=== PATIENT | female | born 1975 | race Caucasian/White ===

== ENCOUNTER 2017-04-09 19:53 | Emergency (ER) | payer MEDICAID ==
[2017-04-09] MEDS ORDERED: Sodium Chloride 0.9% 1,000 ML IV ONE (20:11)
[2017-04-09] MEDS ORDERED: LORazepam 2 MG/ML MDV IVPUSH ONE (20:11)
[2017-04-09] MEDS ORDERED: Ondansetron 4 MG/2 ML SDV IVPUSH ONE (20:11)
[2017-04-09] MEDS ORDERED: Ketorolac 30 MG/ML SDV IVPUSH ONE (20:11)
--- NOTE | 2017-04-09 21:06 | EDM.PDOC ---
ED HPI GENERAL MEDICAL PROBLEM - General Chief Complaint: Headache Stated Complaint: HEADACHE Time Seen by Provider: 04/09/17 20:45 Source of Information: Reports: Patient History Limitations: Reports: No Limitations - History of Present Illness INITIAL COMMENTS - FREE TEXT/NARRATIVE: History of present illness: [41 year-old female presenting with complaints of migraine headache. Patient indicates she has a history of migraines and she had taken her magnesium sulfate medication but that if it failed to prevent the migraine from escalating. Patient indicates she has had worse migraines but this is significant enough that she felt she should come in for further treatment] Review of systems: As per history of present illness and below otherwise all systems reviewed and negative. Past medical history: As per history of present illness and as reviewed below otherwise noncontributory. Surgical history: As per history of present illness and as reviewed below otherwise noncontributory. Social history: No reported history of drug or alcohol abuse. Family history: As per history of present illness and as reviewed below otherwise noncontributory. Physical exam: HEENT: Atraumatic, normocephalic, pupils reactive, negative for conjunctival pallor or scleral icterus, mucous membranes moist, throat clear, neck supple, nontender, trachea midline. Lungs: Clear to auscultation, breath sounds equal bilaterally, chest nontender. Heart: S1S2, regular, negative for clicks, rubs, or JVD. Abdomen: Soft, nondistended, nontender. Negative for masses or hepatosplenomegaly. Negative for costovertebral tenderness. Pelvis: Stable nontender. Genitourinary: Deferred. Rectal: Deferred. Extremities: Atraumatic, negative for cords or calf pain. Neurovascular unremarkable. Neuro: Awake, alert, oriented. Cranial nerves II through XII unremarkable. Cerebellum unremarkable. Motor and sensory unremarkable throughout. Exam nonfocal. Close this but is benign save subjective complaint is that in history of present illness. Diagnostics: [] Therapeutics: [IV fluid, lorazepam, Zofran] Impression: [Migraine] Plan: [Take migraine medication followup with PCP] Definitive disposition and diagnosis as appropriate pending reevaluation and review of above. 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: Neurological History: Reports: Migraines Endocrine/Metabolic History: Reports: Hypothyroidism Oncologic (Cancer) History: Reports: Leukemia - Past Surgical History HEENT Surgical History: Reports: Adenoidectomy, Tonsillectomy GI Surgical History: Reports: Appendectomy Social & Family History - Family History Family Medical History: Noncontributory - Tobacco Use Smoking Status *Q: Never Smoker - Recreational Drug Use Recreational Drug Use: No ED ROS GENERAL - Review of Systems Review Of Systems: See Below (History of present illness) - Physical Exam Exam: See Below (See history of present illness) Course - Vital Signs Last Recorded V/S: Last Vital Signs Temp 36.6 C 04/09/17 20:12 Pulse 92 04/09/17 20:12 Resp 16 04/09/17 20:12 BP 110/82 04/09/17 20:12 Pulse Ox 100 04/09/17 20:12 - Orders/Labs/Meds Labs: Laboratory Tests 04/09/17 04/09/17 Range/Units 20:30 20:30 Urine Color DARK YELLOW Urine Appearance CLEAR Urine pH 5.5 (5.0-8.0) Ur Specific [place] 1.025 (1.001-1.035) Urine Protein NEGATIVE (NEGATIVE) mg/dL Urine Glucose (UA) NEGATIVE (NEGATIVE) mg/dL Urine Ketones NEGATIVE (NEGATIVE) mg/dL Urine Occult Blood NEGATIVE (NEGATIVE) Urine Nitrite POSITIVE H (NEGATIVE) Urine Bilirubin MODERATE H (NEGATIVE) Urine Ictotest NEGATIVE Urine Urobilinogen 1.0 (<2.0) EU/dL Ur Leukocyte Esterase NEGATIVE (NEGATIVE) Urine RBC 0-2 (0-2/HPF) Urine WBC 2-4 (0-5/HPF) Ur Epithelial Cells MANY (NONE-FEW) Urine Bacteria 1+ H (NEGATIVE) Urine Mucus MODERATE (NONE-MOD) Urine HCG, Qual NEGATIVE (NEGATIVE) Meds: Medications Discontinued Medications Generic Name Dose Route Start Last Admin Trade Name Tatyana PRN Reason Stop Dose Admin Diphenhydramine HCl 50 mg 04/09/17 21:08 04/09/17 21:18 Benadryl IVPUSH 04/09/17 21:09 50 mg ONETIME ONE Administration Sodium Chloride 1,000 mls @ 999 mls/hr 04/09/17 20:11 04/09/17 20:48 Normal Saline IV 04/09/17 21:11 999 mls/hr STAT ONE Administration Ketorolac Tromethamine 30 mg 04/09/17 20:11 04/09/17 20:56 Toradol IVPUSH 04/09/17 20:12 Not Given ONETIME ONE Lorazepam 1 mg 04/09/17 20:11 04/09/17 20:51 Ativan IVPUSH 04/09/17 20:12 1 mg ONETIME ONE Administration Metoclopramide HCl 10 mg 04/09/17 21:08 04/09/17 21:20 Reglan IV 04/09/17 21:09 10 mg ONETIME ONE Administration Morphine Sulfate 2 mg 04/09/17 22:16 04/09/17 22:21 Morphine IVPUSH 04/09/17 22:17 2 mg ONETIME ONE Administration Ondansetron HCl 8 mg 04/09/17 20:11 04/09/17 20:49 Zofran IVPUSH 04/09/17 20:12 8 mg ONETIME ONE Administration Departure - Departure Time of Disposition: 22:46 Disposition: Home, Self-Care 01 Condition: good Clinical Impression: Migraine - Discharge Information Instructions: Recurrent Migraine Headache, [id number] Forms: ED Department Discharge Additional Instructions: The following information is given to patients seen in the emergency department who are being discharged to home. This information is to outline your options for follow-up care. We provide all patients seen in our emergency department with a follow-up referral. The need for follow-up, as well as the timing and circumstances, are variable depending upon the specifics of your emergency department visit. If you don't have a primary care physician on staff, we will provide you with a referral. We always advise you to contact your personal physician following an emergency department visit to inform them of the circumstance of the visit and for follow-up with them and/or the need for any referrals to a consulting specialist. The emergency department will also refer you to a specialist when appropriate. This referral assures that you have the opportunity for follow-up care with a specialist. All of these measure are taken in an effort to provide you with optimal care, which includes your follow-up. Under all circumstances we always encourage you to contact your private physician who remains a resource for coordinating your care. When calling for follow-up care, please make the office aware that this follow-up is from your recent emergency room visit. If for any reason you are refused follow-up, please contact the [facility] Emergency Department at and asked to speak to the emergency department charge nurse. Take medication as directed Follow up with PCP 1-2 days Return to ED as needed as discussed
[2017-04-09] MEDS ORDERED: diphenhydrAMINE 50 MG/ML SDV IVPUSH ONE (21:08)
[2017-04-09] MEDS ORDERED: Metoclopramide 10 MG/2 ML SDV IV ONE (21:08)
[2017-04-09] MEDS ORDERED: Morphine 2 MG/ML Syringe IVPUSH ONE (22:16)
[2017-04-09 23:12] VITALS: BP 105/68
== END 2017-04-09 23:05 | disposition home or self-care (01) ==
LOC: MW.ED 19:53
DX: G43.909 Migraine, unspecified, not intractable, without status migrainosus (principal); E03.9 Hypothyroidism, unspecified; Z88.8 Allergy status to other drugs, medicaments and biological substances; Z79.899 Other long term (current) drug therapy; Z98.890 Other specified postprocedural states; Z85.6 Personal history of leukemia
CPT/HCPCS: 81001; 81025; 96361; 96374; 96375; 99283; J1200; J2060; J2270; J2405; J2765; J7040

== ENCOUNTER 2017-06-15 09:38 | Emergency (ER) | payer MEDICAID ==
[2017-06-15] MEDS ORDERED: Sodium Chloride 0.9% 1,000 ML IV ONE (10:34)
[2017-06-15] MEDS ORDERED: Ondansetron 4 MG/2 ML SDV IVPUSH ONE (10:34)
--- NOTE | 2017-06-15 13:34 | CT ---
CT of the abdomen and pelvis without contrast. HISTORY: Pain TECHNIQUE: Axial CT images were obtained of the abdomen and pelvis without contrast. Coronal and sag ittal reconstructions obtained. FINDINGS: The lung bases are clear, no pleural effusion. Focal fatty infiltration noted near the falciform ligament. The spleen, adrenal glands, and pancreas appear unremarkable for noncontrast examination. The gallbladder appears normal. There is no bulky retroperitoneal lymphadenopathy. No abdominal ascites. Punctate nonobstructing stone within the lower pole of the right kidney. The large and small bowel are normal in caliber without evidence of obstruction. Appendectomy. Mild diverticulosis without evidence of diverticulitis. There is no bulky pelvic lymphadenopathy. No free fluid. No free air. The urinary bladder appears normal. The visualized osseous structures appear normal. IMPRESSION: 1. No acute findings within the abdomen or pelvis. 2. Mild diverticulosis without evidence of diverticulitis. 3. Punctate nonobstructing stone within the lower pole of the right kidney.
--- NOTE | 2017-06-15 13:40 | EDM.PDOC ---
ED HPI GENERAL MEDICAL PROBLEM - General Chief Complaint: Abdominal Pain Stated Complaint: ABD PAIN Time Seen by Provider: 06/15/17 12:00 Source of Information: Reports: Patient History Limitations: Reports: No Limitations - History of Present Illness INITIAL COMMENTS - FREE TEXT/NARRATIVE: History of present illness: [31-year-old female comes in complaining of diffuse abdominal pain that has gotten significantly worse. Patient also admits that she has a significant amount of stress at this time.] Review of systems: As per history of present illness and below otherwise all systems reviewed and negative. Past medical history: As per history of present illness and as reviewed below otherwise noncontributory. Surgical history: As per history of present illness and as reviewed below otherwise noncontributory. Social history: No reported history of drug or alcohol abuse. Family history: As per history of present illness and as reviewed below otherwise noncontributory. Physical exam: HEENT: Atraumatic, normocephalic, pupils reactive, negative for conjunctival pallor or scleral icterus, mucous membranes moist, throat clear, neck supple, nontender, trachea midline. Lungs: Clear to auscultation, breath sounds equal bilaterally, chest nontender. Heart: S1S2, regular, negative for clicks, rubs, or JVD. Abdomen: Soft, nondistended diffuse nonspecific tenderness. Negative for masses or hepatosplenomegaly. Negative for costovertebral tenderness. Pelvis: Stable nontender. Genitourinary: Deferred. Rectal: Deferred. Extremities: Atraumatic, negative for cords or calf pain. Neurovascular unremarkable. Neuro: Awake, alert, oriented. Cranial nerves II through XII unremarkable. Cerebellum unremarkable. Motor and sensory unremarkable throughout. Exam nonfocal. Diagnostics: [CT BC, CMP, CT of abdomen] Therapeutics: [IV fluids] Impression: [Abdominal pain] Plan: [Follow-up with PCP] Definitive disposition and diagnosis as appropriate pending reevaluation and review of above. 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: , Other (See Below) Other OB/BYN History: complete hysterectomy Neurological History: Reports: Migraines Endocrine/Metabolic History: Reports: Hypothyroidism Oncologic (Cancer) History: Reports: Leukemia - Past Surgical History HEENT Surgical History: Reports: Adenoidectomy, Tonsillectomy GI Surgical History: Reports: Appendectomy Social & Family History - Family History Family Medical History: Noncontributory - Tobacco Use Smoking Status *Q: Never Smoker - Caffeine Use Caffeine Use: Reports: None - Recreational Drug Use Recreational Drug Use: No ED ROS GENERAL - Review of Systems Review Of Systems: See Below (History of present illness) ED EXAM, GI/ABD - Physical Exam Exam: See Below (See history of present illness) Course - Vital Signs Last Recorded V/S: Last Vital Signs Temp 36.6 C 06/15/17 09:48 Pulse 78 06/15/17 09:48 Resp 18 06/15/17 09:48 BP 109/77 06/15/17 09:48 Pulse Ox 100 06/15/17 09:48 - Orders/Labs/Meds Labs: Laboratory Tests 06/15/17 06/15/17 06/15/17 Range/Units 10:45 10:45 10:58 WBC 5.54 (4.0-11.0) K/uL RBC 4.95 (4.30-5.90) M/uL Hgb 15.0 (12.0-16.0) g/dL Hct 42.6 (36.0-46.0) % MCV 86.1 (80.0-98.0) fL MCH 30.3 (27.0-32.0) pg MCHC 35.2 (31.0-37.0) g/dL RDW Std Deviation 36.7 (28.0-62.0) fl RDW Coeff of Primo 12 (11.0-15.0) % Plt Count 254 (150-400) K/uL MPV 9.60 (7.40-12.00) fL Neut % (Auto) 59.6 (48.0-80.0) % Lymph % (Auto) 24.2 (16.0-40.0) % [place] % (Auto) 12.3 (0.0-15.0) % Eos % (Auto) 3.2 (0.0-7.0) % Baso % (Auto) 0.7 (0.0-1.5) % Neut # (Auto) 3.3 (1.4-5.7) K/uL Lymph # (Auto) 1.3 (0.6-2.4) K/uL [place] # (Auto) 0.7 (0.0-0.8) K/uL Eos # (Auto) 0.2 (0.0-0.7) K/uL Baso # (Auto) 0.0 (0.0-0.1) K/uL Nucleated RBC % 0.0 /100WBC Nucleated RBCs # 0 K/uL Sodium 138 (136-146) mmol/L Potassium 3.6 (3.5-5.1) mmol/L Chloride 103 (98-110) mmol/L Carbon Dioxide 23 (21-31) mmol/L BUN 21 (6.0-23.0) mg/dL Creatinine 2.0 H (0.6-1.5) mg/dL Est Cr Clr Drug Dosing 39.08 mL/min Estimated GFR (MDRD) 27.6 ml/min Glucose 72 (60-110) mg/dL Calcium 9.6 (8.8-10.8) mg/dL Total Bilirubin 0.4 (0.1-1.5) mg/dL AST 13 (5-40) IU/L ALT 17 (8-54) IU/L Alkaline Phosphatase 91 (40-150) Total Protein 7.8 (6.0-8.0) g/dL Albumin 4.8 (3.5-5.0) g/dL Globulin 3.0 (2.0-3.5) g/dL Albumin/Globulin Ratio 1.6 (1.3-2.8) Amylase 75 (10-90) U/L Lipase 30 (7-80) U/L Urine Color YELLOW Urine Appearance CLEAR Urine pH 5.5 (5.0-8.0) Ur Specific [place] 1.020 (1.001-1.035) Urine Protein NEGATIVE (NEGATIVE) mg/dL Urine Glucose (UA) NEGATIVE (NEGATIVE) mg/dL Urine Ketones NEGATIVE (NEGATIVE) mg/dL Urine Occult Blood NEGATIVE (NEGATIVE) Urine Nitrite NEGATIVE (NEGATIVE) Urine Bilirubin NEGATIVE (NEGATIVE) Urine Urobilinogen 0.2 (<2.0) EU/dL Ur Leukocyte Esterase NEGATIVE (NEGATIVE) Urine RBC 0-1 (0-2/HPF) Urine WBC 0-2 (0-5/HPF) Ur Epithelial Cells FEW (NONE-FEW) Urine Bacteria RARE (NEGATIVE) Meds: Medications Discontinued Medications Generic Name Dose Route Start Last Admin Trade Name Donavanq PRN Reason Stop Dose Admin Sodium Chloride 1,000 mls @ 999 mls/hr 06/15/17 10:34 06/15/17 10:52 Normal Saline IV 06/15/17 11:34 999 mls/hr STAT ONE Administration Ondansetron HCl 8 mg 06/15/17 10:34 06/15/17 10:53 Zofran IVPUSH 06/15/17 10:35 8 mg ONETIME ONE Administration Departure - Departure Time of Disposition: 13:39 Disposition: Home, Self-Care 01 Condition: Good Clinical Impression: Abdominal pain - Discharge Information Instructions: Abdominal Pain, Adult, [id number] Forms: ED Department Discharge Additional Instructions: The following information is given to patients seen in the emergency department who are being discharged to home. This information is to outline your options for follow-up care. We provide all patients seen in our emergency department with a follow-up referral. The need for follow-up, as well as the timing and circumstances, are variable depending upon the specifics of your emergency department visit. If you don't have a primary care physician on staff, we will provide you with a referral. We always advise you to contact your personal physician following an emergency department visit to inform them of the circumstance of the visit and for follow-up with them and/or the need for any referrals to a consulting specialist. The emergency department will also refer you to a specialist when appropriate. This referral assures that you have the opportunity for follow-up care with a specialist. All of these measure are taken in an effort to provide you with optimal care, which includes your follow-up. Under all circumstances we always encourage you to contact your private physician who remains a resource for coordinating your care. When calling for follow-up care, please make the office aware that this follow-up is from your recent emergency room visit. If for any reason you are refused follow-up, please contact the [facility] Emergency Department at and asked to speak to the emergency department charge nurse. Your findings today were nonspecific and showed no acute changes or concerns It would benefit you to follow-up with the primary care provider specifically in the next few days Return to ED as needed as discussed [facility] Primary Care [address] [place] [id number]
[2017-06-15] MEDS ORDERED: Ranitidine 15 MG/ML Syrup 10 ML UD Cup PO ONE (13:54)
[2017-06-15 14:12] VITALS: BP 111/79
== END 2017-06-15 14:12 | disposition home or self-care (01) ==
LOC: MW.ED 09:38
DX: R10.9 Unspecified abdominal pain (principal); E03.9 Hypothyroidism, unspecified; Z88.6 Allergy status to analgesic agent; Z79.899 Other long term (current) drug therapy; Z90.710 Acquired absence of both cervix and uterus; Z98.890 Other specified postprocedural states; Z90.49 Acquired absence of other specified parts of digestive tract
CPT/HCPCS: 36415; 74176; 80053; 81001; 82150; 83690; 85025; 96361; 96374; 99284; A9270; J2405; J7040; 99283

== ENCOUNTER 2017-11-14 14:58 | Emergency (ER) | payer MEDICAID ==
[2017-11-14 15:41] VITALS: BP 123/76
--- NOTE | 2017-11-14 16:06 | EDM.PDOC ---
ED HPI GENERAL MEDICAL PROBLEM - General Chief Complaint: Genitourinary Problem Stated Complaint: POSSIBLE BLADDER INFECTION Time Seen by Provider: 11/14/17 15:40 Source of Information: Reports: Patient History Limitations: Reports: No Limitations - History of Present Illness INITIAL COMMENTS - FREE TEXT/NARRATIVE: History of present illness: [42-year-old female comes in complaining of burning urgency frequency. Also indicates that her boyfriend has just now indicated that he has sores on his penis. Patient is concerned for possible STI/STD.] Review of systems: As per history of present illness and below otherwise all systems reviewed and negative. Past medical history: As per history of present illness and as reviewed below otherwise noncontributory. Surgical history: As per history of present illness and as reviewed below otherwise noncontributory. Social history: No reported history of drug or alcohol abuse. Family history: As per history of present illness and as reviewed below otherwise noncontributory. Physical exam: HEENT: Atraumatic, normocephalic, pupils reactive, negative for conjunctival pallor or scleral icterus, mucous membranes moist, throat clear, neck supple, nontender, trachea midline. Lungs: Clear to auscultation, breath sounds equal bilaterally, chest nontender. Heart: S1S2, regular, negative for clicks, rubs, or JVD. Abdomen: Soft, nondistended, nontender. Negative for masses or hepatosplenomegaly. Negative for costovertebral tenderness. Pelvis: Stable nontender. Genitourinary: Deferred. Rectal: Deferred. Extremities: Atraumatic, negative for cords or calf pain. Neurovascular unremarkable. Neuro: Awake, alert, oriented. Cranial nerves II through XII unremarkable. Cerebellum unremarkable. Motor and sensory unremarkable throughout. Exam nonfocal. Global assessment is benign save the subjective complaint as noted in history of present illness Diagnostics: [UA, GC] Therapeutics: [] Impression: [STI exposure] Plan: [Rocephin, azithromycin empirically] Definitive disposition and diagnosis as appropriate pending reevaluation and review of above. 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 , Other (See Below) Other OB/BYN History: complete hysterectomy Neurological History: Reports: Migraines Endocrine/Metabolic History: Reports: Hypothyroidism Oncologic (Cancer) History: Reports: Leukemia - Past Surgical History HEENT Surgical History: Reports: Adenoidectomy, Tonsillectomy GI Surgical History: Reports: Appendectomy Female Surgical History: Reports: Hysterectomy Social & Family History - Family History Family Medical History: Noncontributory - Tobacco Use Smoking Status *Q: Never Smoker - Caffeine Use Caffeine Use: Reports: None - Recreational Drug Use Recreational Drug Use: No ED ROS GENERAL - Review of Systems Review Of Systems: See Below (See history of present illness) ED EXAM, GENERAL - Physical Exam Exam: See Below (History of present illness) Course - Vital Signs Last Recorded V/S: Last Vital Signs Temp 36.2 C 11/14/17 15:38 Pulse 73 11/14/17 15:38 Resp 18 11/14/17 15:38 BP 123/76 11/14/17 15:38 Pulse Ox 97 11/14/17 15:38 - Orders/Labs/Meds Orders: Active Orders 24 hr Category Date Time Status CHLAMYDIA AND GONORRHEA BY [facility] Stat Lab 11/14/17 15:40 Received CULTURE URINE [RM] Stat Lab 11/14/17 15:40 Received Labs: Laboratory Tests 11/14/17 Range/Units 15:40 Urine Color YELLOW Urine Appearance CLEAR Urine pH 7.0 (5.0-8.0) Ur Specific [place] 1.020 (1.001-1.035) Urine Protein NEGATIVE (NEGATIVE) mg/dL Urine Glucose (UA) NEGATIVE (NEGATIVE) mg/dL Urine Ketones NEGATIVE (NEGATIVE) mg/dL Urine Occult Blood NEGATIVE (NEGATIVE) Urine Nitrite NEGATIVE (NEGATIVE) Urine Bilirubin NEGATIVE (NEGATIVE) Urine Urobilinogen 0.2 (<2.0) EU/dL Ur Leukocyte Esterase NEGATIVE (NEGATIVE) Urine RBC 0-1 (0-2/HPF) Urine WBC 0-1 (0-5/HPF) Ur Epithelial Cells FEW (NONE-FEW) Urine Bacteria RARE (NEGATIVE) Meds: Medications Discontinued Medications Generic Name Dose Route Start Last Admin Trade Name Tatyana PRN Reason Stop Dose Admin Azithromycin 1,000 mg 11/14/17 16:42 11/14/17 16:55 Zithromax PO 11/14/17 16:43 1,000 mg Q24H ONE Administration Ceftriaxone Sodium 2,000 mg/ 0 mg 11/14/17 16:42 11/14/17 16:55 Lidocaine HCl 2.1 ml IM 11/14/17 16:43 1 gm ONETIME ONE Administration Departure - Departure Time of Disposition: 17:07 Disposition: Home, Self-Care 01 Condition: Good Clinical Impression: Sexually transmitted disease exposure - Discharge Information Referrals: PCP,None [Primary Care Provider] - Forms: ED Department Discharge Additional Instructions: The following information is given to patients seen in the emergency department who are being discharged to home. This information is to outline your options for follow-up care. We provide all patients seen in our emergency department with a follow-up referral. The need for follow-up, as well as the timing and circumstances, are variable depending upon the specifics of your emergency department visit. If you don't have a primary care physician on staff, we will provide you with a referral. We always advise you to contact your personal physician following an emergency department visit to inform them of the circumstance of the visit and for follow-up with them and/or the need for any referrals to a consulting specialist. The emergency department will also refer you to a specialist when appropriate. This referral assures that you have the opportunity for follow-up care with a specialist. All of these measure are taken in an effort to provide you with optimal care, which includes your follow-up. Under all circumstances we always encourage you to contact your private physician who remains a resource for coordinating your care. When calling for follow-up care, please make the office aware that this follow-up is from your recent emergency room visit. If for any reason you are refused follow-up, please contact the [facility] Emergency Department at and asked to speak to the emergency department charge nurse. You've been treated for a STI's as discussed Follow-up with women's health as soon as able Return to ED as needed as discussed - My Orders Last 24 Hours: My Active Orders 11/14/17 15:40 CHLAMYDIA AND GONORRHEA BY [facility] Stat - Assessment/Plan Last 24 Hours: My Active Orders 11/14/17 15:40 CHLAMYDIA AND GONORRHEA BY [facility] Stat
[2017-11-14] MEDS ORDERED: Azithromycin 250 MG Tab PO ONE (16:42)
[2017-11-14] MEDS ORDERED: cefTRIAXone 2,000 MG, Lidocaine 1% 2.1 ML IM ONE ×2 (16:42)
== END 2017-11-14 17:19 | disposition home or self-care (01) ==
LOC: MW.ED 14:58
DX: Z20.2 Contact with and (suspected) exposure to infections with a predominantly sexual mode of transmission (principal); Z88.6 Allergy status to analgesic agent; Z79.899 Other long term (current) drug therapy
CPT/HCPCS: 81001; 87086; 87491; 87591; 96372; 99283; A9270; J0696

== ENCOUNTER 2017-11-15 18:31 | Emergency (ER) | payer MEDICAID ==
[2017-11-15] MEDS ORDERED: Lidocaine 2% 5 ML SDV INJECT ONE (19:21)
--- NOTE | 2017-11-15 19:25 | EDM.PDOC ---
ED HPI GENERAL MEDICAL PROBLEM - General Chief Complaint: Genitourinary Problem Stated Complaint: CYST Time Seen by Provider: 11/15/17 19:05 Source of Information: Reports: Patient History Limitations: Reports: No Limitations - History of Present Illness INITIAL COMMENTS - FREE TEXT/NARRATIVE: History of present illness: [42-year-old female comes in complaining of a cyst on interval aspect of her labia patient indicates that it has groin been growing larger and she has had recent STD exposure and she would like to have culture as well as be tested for other STDs. Patient also complaining of deep pelvic pain as well as bilateral back pain in the kidney region patient has a history of kidney problems will work her up for same.] Review of systems: As per history of present illness and below otherwise all systems reviewed and negative. Past medical history: As per history of present illness and as reviewed below otherwise noncontributory. Surgical history: As per history of present illness and as reviewed below otherwise noncontributory. Social history: No reported history of drug or alcohol abuse. Family history: As per history of present illness and as reviewed below otherwise noncontributory. Physical exam: HEENT: Atraumatic, normocephalic, pupils reactive, negative for conjunctival pallor or scleral icterus, mucous membranes moist, throat clear, neck supple, nontender, trachea midline. Lungs: Clear to auscultation, breath sounds equal bilaterally, chest nontender. Heart: S1S2, regular, negative for clicks, rubs, or JVD. Abdomen: Soft, bilateral lower quadrants with diffuse tenderness significantly worse with deep palpation. Negative for masses or hepatosplenomegaly. Negative for costovertebral tenderness. Pelvis: Stable nontender. Genitourinary: Deferred. Rectal: Deferred. Extremities: Atraumatic, negative for cords or calf pain. Neurovascular unremarkable. Neuro: Awake, alert, oriented. Cranial nerves II through XII unremarkable. Cerebellum unremarkable. Motor and sensory unremarkable throughout. Exam nonfocal. During ER stay patient developed the beginning of a migraine. Patient is known to struggle with these and there some level of chronicity when she is under stress. Diagnostics: [HIV rapid 1 and 2, hep C, RPR] Therapeutics: [IV fluid,] Impression: [#1 STI exposure #2 labial abscess #3 enteritis #4 migraine] Plan: [Antibiotics follow-up with primary care] Definitive disposition and diagnosis as appropriate pending reevaluation and review of above. bilateral flank Pain Score (Numeric/FACES): 6 - Related Data Allergies Allergy/AdvReac Type Severity Reaction Status Date / Time ketorolac [From Toradol] Allergy Swollen Verified 11/15/17 18:39 Tongue Home Meds: Home Meds Levothyroxine [Synthroid] 88 mcg PO ACBREAKFAST 04/09/17 [History] Topiramate [Topamax] 50 mg PO DAILY 04/09/17 [History] Citalopram Hydrobromide [Celexa] 11/14/17 [History] SUMAtriptan [Imitrex] 11/14/17 [History] Past Medical History Genitourinary History: Reports: Renal Disease [employer] History: Reports: , Spontaneous , Other (See Below) Other OB/BYN History: complete hysterectomy Neurological History: Reports: Migraines Endocrine/Metabolic History: Reports: Hypothyroidism Oncologic (Cancer) History: Reports: Leukemia - Past Surgical History HEENT Surgical History: Reports: Adenoidectomy, Tonsillectomy GI Surgical History: Reports: Appendectomy Female Surgical History: Reports: Hysterectomy Social & Family History - Family History Family Medical History: Noncontributory - Tobacco Use Smoking Status *Q: Never Smoker - Caffeine Use Caffeine Use: Reports: None - Recreational Drug Use Recreational Drug Use: No ED ROS GENERAL - Review of Systems Review Of Systems: See Below (History of present illness) ED EXAM, GENERAL - Physical Exam Exam: See Below (History of present illness) Course - Vital Signs Last Recorded V/S: Last Vital Signs Temp 36.2 C 11/15/17 18:40 Pulse 88 11/15/17 18:40 Resp 18 11/15/17 18:40 BP 124/88 11/15/17 18:40 Pulse Ox 100 11/15/17 18:40 - Orders/Labs/Meds Orders: Active Orders 24 hr Category Date Time Status Abdomen Pelvis wo Cont [CT] Stat Exams 11/15/17 21:43 Taken HEPATITIS C AB [REF] Stat Lab 11/15/17 19:47 Received RPR [REF] Stat Lab 11/15/17 19:47 Received Orphenadrine [Norflex] Med 11/15/17 21:30 Active 60 mg IM Q12H Medication Orders Orphenadrine Citrate (Norflex) 60 mg IM Q12H TAMMY Last Admin: 11/15/17 22:27 Dose: 60 mg Labs: Laboratory Tests 11/15/17 11/15/17 11/15/17 Range/Units 19:47 19:47 19:47 WBC 7.27 (4.0-11.0) K/uL RBC 4.93 (4.30-5.90) M/uL Hgb 14.7 (12.0-16.0) g/dL Hct 43.2 (36.0-46.0) % MCV 87.6 (80.0-98.0) fL MCH 29.8 (27.0-32.0) pg MCHC 34.0 (31.0-37.0) g/dL RDW Std Deviation 38.8 (28.0-62.0) fl RDW Coeff of Primo 12 (11.0-15.0) % Plt Count 232 (150-400) K/uL MPV 9.50 (7.40-12.00) fL Neut % (Auto) 65.9 (48.0-80.0) % Lymph % (Auto) 23.7 (16.0-40.0) % George % (Auto) 8.8 (0.0-15.0) % Eos % (Auto) 1.2 (0.0-7.0) % Baso % (Auto) 0.4 (0.0-1.5) % Neut # (Auto) 4.8 (1.4-5.7) K/uL Lymph # (Auto) 1.7 (0.6-2.4) K/uL George # (Auto) 0.6 (0.0-0.8) K/uL Eos # (Auto) 0.1 (0.0-0.7) K/uL Baso # (Auto) 0.0 (0.0-0.1) K/uL Nucleated RBC % 0.0 /100WBC Nucleated RBCs # 0 K/uL Sodium 142 (136-146) mmol/L Potassium 3.9 (3.5-5.1) mmol/L Chloride 108 (98-110) mmol/L Carbon Dioxide 23 (21-31) mmol/L BUN 20 (6.0-23.0) mg/dL Creatinine 1.4 (0.6-1.5) mg/dL Est Cr Clr Drug Dosing 55.26 mL/min Estimated GFR (MDRD) 41.4 ml/min Glucose 80 (60-110) mg/dL Calcium 10.0 (8.8-10.8) mg/dL Total Bilirubin 0.4 (0.1-1.5) mg/dL AST 23 (5-40) IU/L ALT 18 (8-54) IU/L Alkaline Phosphatase 77 (40-150) Total Protein 7.6 (6.0-8.0) g/dL Albumin 4.9 (3.5-5.0) g/dL Globulin 2.7 (2.0-3.5) g/dL Albumin/Globulin Ratio 1.8 (1.3-2.8) Urine Color Urine Appearance Urine pH (5.0-8.0) Ur Specific [place] (1.001-1.035) Urine Protein (NEGATIVE) mg/dL Urine Glucose (UA) (NEGATIVE) mg/dL Urine Ketones (NEGATIVE) mg/dL Urine Occult Blood (NEGATIVE) Urine Nitrite (NEGATIVE) Urine Bilirubin (NEGATIVE) Urine Urobilinogen (<2.0) EU/dL Ur Leukocyte Esterase (NEGATIVE) Urine RBC (0-2/HPF) Urine WBC (0-5/HPF) Ur Epithelial Cells (NONE-FEW) Urine Bacteria (NEGATIVE) HIV 1&2 Ag/Ab, 4th Gen 0.1 (<1.0) 11/15/17 Range/Units 21:45 WBC (4.0-11.0) K/uL RBC (4.30-5.90) M/uL Hgb (12.0-16.0) g/dL Hct (36.0-46.0) % MCV (80.0-98.0) fL MCH (27.0-32.0) pg MCHC (31.0-37.0) g/dL RDW Std Deviation (28.0-62.0) fl RDW Coeff of Primo (11.0-15.0) % Plt Count (150-400) K/uL MPV (7.40-12.00) fL Neut % (Auto) (48.0-80.0) % Lymph % (Auto) (16.0-40.0) % George % (Auto) (0.0-15.0) % Eos % (Auto) (0.0-7.0) % Baso % (Auto) (0.0-1.5) % Neut # (Auto) (1.4-5.7) K/uL Lymph # (Auto) (0.6-2.4) K/uL George # (Auto) (0.0-0.8) K/uL Eos # (Auto) (0.0-0.7) K/uL Baso # (Auto) (0.0-0.1) K/uL Nucleated RBC % /100WBC Nucleated RBCs # K/uL Sodium (136-146) mmol/L Potassium (3.5-5.1) mmol/L Chloride (98-110) mmol/L Carbon Dioxide (21-31) mmol/L BUN (6.0-23.0) mg/dL Creatinine (0.6-1.5) mg/dL Est Cr Clr Drug Dosing mL/min Estimated GFR (MDRD) ml/min Glucose (60-110) mg/dL Calcium (8.8-10.8) mg/dL Total Bilirubin (0.1-1.5) mg/dL AST (5-40) IU/L ALT (8-54) IU/L Alkaline Phosphatase (40-150) Total Protein (6.0-8.0) g/dL Albumin (3.5-5.0) g/dL Globulin (2.0-3.5) g/dL Albumin/Globulin Ratio (1.3-2.8) Urine Color YELLOW Urine Appearance CLEAR Urine pH 7.5 (5.0-8.0) Ur Specific [place] 1.015 (1.001-1.035) Urine Protein NEGATIVE (NEGATIVE) mg/dL Urine Glucose (UA) NEGATIVE (NEGATIVE) mg/dL Urine Ketones NEGATIVE (NEGATIVE) mg/dL Urine Occult Blood SMALL H (NEGATIVE) Urine Nitrite NEGATIVE (NEGATIVE) Urine Bilirubin NEGATIVE (NEGATIVE) Urine Urobilinogen 0.2 (<2.0) EU/dL Ur Leukocyte Esterase NEGATIVE (NEGATIVE) Urine RBC 2-4 (0-2/HPF) Urine WBC 0-1 (0-5/HPF) Ur Epithelial Cells FEW (NONE-FEW) Urine Bacteria FEW (NEGATIVE) HIV 1&2 Ag/Ab, 4th Gen (<1.0) Meds: Medications Generic Name Dose Route Start Last Admin Trade Name Freq PRN Reason Stop Dose Admin Orphenadrine Citrate 60 mg 11/15/17 21:30 11/15/17 22:27 Norflex IM 60 mg Q12H TAMMY Administration Discontinued Medications Generic Name Dose Route Start Last Admin Trade Name Donavanq PRN Reason Stop Dose Admin Sodium Chloride 1,000 mls @ 999 mls/hr 11/15/17 20:11 11/15/17 19:40 Normal Saline IV 11/15/17 21:11 999 mls/hr STAT ONE Administration Lidocaine 5 ml 11/15/17 19:21 Xylocaine-Mpf 2% INJECT 11/15/17 19:22 ONETIME ONE Lidocaine HCl Confirm 11/15/17 19:27 Xylocaine-Mpf 1% Administered 11/15/17 19:28 Dose 5 ml .ROUTE .STK-MED ONE Lorazepam 1 mg 11/15/17 21:46 11/15/17 22:21 Ativan IVPUSH 11/15/17 21:47 1 mg ONETIME ONE Administration Morphine Sulfate 2 mg 11/15/17 21:29 Morphine IVPUSH 11/15/17 21:30 ONETIME ONE Ondansetron HCl 4 mg 11/15/17 21:29 11/15/17 22:17 Zofran IVPUSH 11/15/17 21:30 4 mg ONETIME ONE Administration Sumatriptan Succinate 6 mg 11/15/17 21:46 11/15/17 22:17 Imitrex SUBCUT 11/15/17 21:47 6 mg ONETIME ONE Administration Departure - Departure Time of Disposition: 23:30 Disposition: Home, Self-Care 01 Condition: Good Clinical Impression: Sexually transmitted disease exposure, Migraine, Abdominal pain, Enteritis - Discharge Information Referrals: PCP,None [Primary Care Provider] - Forms: ED Department Discharge Additional Instructions: The following information is given to patients seen in the emergency department who are being discharged to home. This information is to outline your options for follow-up care. We provide all patients seen in our emergency department with a follow-up referral. The need for follow-up, as well as the timing and circumstances, are variable depending upon the specifics of your emergency department visit. If you don't have a primary care physician on staff, we will provide you with a referral. We always advise you to contact your personal physician following an emergency department visit to inform them of the circumstance of the visit and for follow-up with them and/or the need for any referrals to a consulting specialist. The emergency department will also refer you to a specialist when appropriate. This referral assures that you have the opportunity for follow-up care with a specialist. All of these measure are taken in an effort to provide you with optimal care, which includes your follow-up. Under all circumstances we always encourage you to contact your private physician who remains a resource for coordinating your care. When calling for follow-up care, please make the office aware that this follow-up is from your recent emergency room visit. If for any reason you are refused follow-up, please contact the [facility] Emergency Department at and asked to speak to the emergency department charge nurse. You're being given medication to help with your GI distress as discussed Take it as prescribed All up with primary care provider Return to ED as needed as discussed - My Orders Last 24 Hours: My Active Orders 11/15/17 19:47 HEPATITIS C AB [REF] Stat RPR [REF] Stat 11/15/17 21:30 Orphenadrine [Norflex] 60 mg IM Q12H 11/15/17 21:43 Abdomen Pelvis wo Cont [CT] Stat - Assessment/Plan Last 24 Hours: My Active Orders 11/15/17 19:47 HEPATITIS C AB [REF] Stat RPR [REF] Stat 11/15/17 21:30 Orphenadrine [Norflex] 60 mg IM Q12H 11/15/17 21:43 Abdomen Pelvis wo Cont [CT] Stat
[2017-11-15] MEDS ORDERED: Sodium Chloride 0.9% 1,000 ML IV ONE (20:11)
[2017-11-15] MEDS ORDERED: Ondansetron 4 MG/2 ML SDV IVPUSH ONE (21:29)
[2017-11-15] MEDS ORDERED: Morphine 2 MG/ML Syringe IVPUSH ONE (21:29)
[2017-11-15] MEDS ORDERED: SUMAtriptan 6 MG/0.5 ML SDV SUBCUT ONE (21:46)
[2017-11-15] MEDS ORDERED: LORazepam 2 MG/ML MDV IVPUSH ONE (21:46)
[2017-11-16 00:07] VITALS: BP 107/85
--- NOTE | 2017-11-16 16:19 | CT ---
EXAM DATE: 11/15/17 PATIENT'S AGE: 42 Patient: ISRAEL HOPPER Facility: [place], [place] Site . Site : [id number] Study: CT Abdomen/Pelvis WO CONT [id number]/[id number] 10:44:45 PM Ordering Physician: Doctor Kurtz Final Report: INDICATION: Pain with urinating. Stomach bloating. History of kidney disease. TECHNIQUE: CT abdomen and pelvis without contrast. COMPARISON: CT abdomen and pelvis June 15, 2017. FINDINGS: Lower chest: Unremarkable. Liver: Unremarkable. Spleen: Unremarkable. Pancreas: Unremarkable. Gallbladder and bile ducts: Unremarkable. Kidneys: The obstructing stone in the lower pole of the right kidney, unchanged. No ureteral stones or hydroureteronephrosis. Adrenal glands: Unremarkable. GI tract: The mild fluid retention and borderline dilatation of small bowel in the left abdomen. No high-grade bowel obstruction. Mild colonic diverticulosis without evidence of acute diverticulitis. Fecal loading of the proximal colon. No free air or free fluid. Vascular structures: Unremarkable. Lymph nodes: Unremarkable. Pelvic Organs: Unremarkable. Bones: Mild degenerative changes. IMPRESSION: No ureteral stones or hydroureteronephrosis. Nonobstructing stone in the lower pole of the right kidney. Borderline dilated small bowel with fluid retention in the left abdomen is nonspecific but could represent an underlying enteritis. No high-grade bowel obstruction. Colonic diverticulosis without evidence of acute diverticulitis. Dictated by Jeremiah Gabriel MD @ 11/15/2017 11:06:33 PM Dictated by: Jeremiah Gabriel MD @ 11/15/2017 23:07:02 (Electronic Signature) Report Signed by Proxy. GALEN
== END 2017-11-15 23:55 | disposition home or self-care (01) ==
LOC: MW.ED 18:31
DX: N76.4 Abscess of vulva (principal); K52.9 Noninfective gastroenteritis and colitis, unspecified; G43.909 Migraine, unspecified, not intractable, without status migrainosus; Z20.2 Contact with and (suspected) exposure to infections with a predominantly sexual mode of transmission; E03.9 Hypothyroidism, unspecified; Z79.899 Other long term (current) drug therapy; Z88.6 Allergy status to analgesic agent
CPT/HCPCS: 36415; 74176; 80053; 81001; 85025; 86592; 86803; 87389; 96361; 96372; 96374; 96375; 99284; J2060; J2360; J2405; J3030; J7040; 99283